=== PATIENT | male | born 1985 | race Hispanic/Latino ===

== ENCOUNTER 2017-11-20 10:36 | Outpatient (CLI) | payer OTHER ==
--- NOTE | 2017-11-20 11:41 | RAD ---
TWO VIEW CHEST: Comparison: 07-04-17 Clinical history: Microbacterial infection, follow up. FINDINGS: There is patchy and interstitial prominence of the right upper lung with associated cavitary change, similar in appearance. There is left suprahilar interstitial opacification again seen. No effusion or pneumothorax. Cardiac silhouette is stable. IMPRESSION: Stable bilateral parenchymal opacities with associated cystic change which could relate to a componen t of bronchiectasis and/or pneumocele formation. POS: [facility]
== END 2017-11-20 10:37 | disposition home or self-care (01) ==
LOC: SCSRAD 10:36
PROVIDERS: ATTEND Internal Medicine Infectious Disease
DX: A31.0 Pulmonary mycobacterial infection (principal); R91.8 Other nonspecific abnormal finding of lung field; J47.9 Bronchiectasis, uncomplicated; J94.8 Other specified pleural conditions
CPT/HCPCS: 71046

== ENCOUNTER 2019-06-20 08:00 | Outpatient (CLI) | payer OTHER ==
[2019-06-20] MEDS ORDERED: Iopamidol 370 76% 100 ML VIAL ONE (09:00)
--- NOTE | 2019-06-20 09:18 | CT ---
CT of the orbits with IV contrast: 06/20/2019 COMPARISON: None HISTORY: Graves' disease, exophthalmos TECHNIQUE: Axial CT imaging at 2 mm intervals through the orbits with IV contrast. Coronal and sagitt al reformatted imaging obtained. FINDINGS: There is mild polypoid mucosal thickening involving bilateral maxillary sinuses. Imaged par anasal sinuses and mastoid air cells are otherwise unremarkable. Imaged brain parenchyma appears grossly unremarkable. There is a moderate degree of exophthalmus bilaterally, symmetric in nature. The extraocular muscles are thickened and enhancing bilaterally, primarily involving the medial rectu s, superior rectus, and inferior rectus muscles. There is relative sparing of the oblique and lateral rectus musculature bilaterally. 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 IMPRESSION: Thickened and enhancing extraocular musculature bilaterally as detailed above, consistent with thyroid associated orbitopathy.
== END 2019-06-20 08:01 | disposition home or self-care (01) ==
LOC: SCSCT 08:00
PROVIDERS: ATTEND Ophthalmology
DX: H05.242 Constant exophthalmos, left eye (principal); E05.00 Thyrotoxicosis with diffuse goiter without thyrotoxic crisis or storm; H05.89 Other disorders of orbit
CPT/HCPCS: 70481; Q9967